=== PATIENT | female | born 1960 | race Caucasian/White ===

== ENCOUNTER 2016-11-17 13:04 | Emergency (ER) | payer OTHER ==
[~2016-11-17] VITALS: Ht 167.6 cm; Wt 91.1 kg
[~2016-11-17 13:04] MED LIST: ALLOPURINOL300 MG PO; B12 PO; BAYER CHEWABLE81 MG PO; FLINTSTONES WIT18 MG PO; FLOMAX0.4 MG PO; LIDODERM 5% P1 PATCH TD; MOBIC15 MG PO; MOTRIN600 MG PO; NEURONTIN300 MG PO; PERCOCET 5/31 TABLET PO; PREDNISONE; PYRIDIUM200 MG PO; SOMA350 MG PO; SYNTHROID125 MCG PO; VICODIN 5-3001 EACH PO; VITAMIN D-32000 UNI2 PO
[2016-11-17] MEDS ORDERED: VITAMIN D31000 UNI2 PO (13:29)
[2016-11-17] MEDS ORDERED: VITAMIN B122500 MCG PO (13:29)
[2016-11-17] MEDS ORDERED: CELEXA20 MG PO (13:29)
[2016-11-17] MEDS ORDERED: VALSARTAN160 MG PO (13:29)
[2016-11-17] MEDS ORDERED: STROVITE FORTE1 EACH PO (13:30)
[2016-11-17] MEDS ORDERED: IRON325 MG PO (13:31)
[2016-11-17] MEDS ORDERED: MEDROL DOSEPAK4 MG PO (14:36)
[2016-11-17] MEDS ORDERED: FLEXERIL10 MG PO (14:36)
[2016-11-17] MEDS ORDERED: PERCOCET 5/31 TABLET PO (14:36)
[2016-11-17 14:51] VITALS: BP 152/90
== END 2016-11-17 14:53 | disposition home or self-care (01) ==
LOC: EME 13:04
DX: M54.12 Radiculopathy, cervical region (principal); M48.02 Spinal stenosis, cervical region; I10 Essential (primary) hypertension
CPT/HCPCS: 99281; 99284; J1100; J3010